=== PATIENT | male | born 1945 | race Hispanic/Latino ===

== ENCOUNTER 2017-12-11 19:28 | Observation (INO) | payer MEDICARE, MEDICAID ==
[~2017-12-11 19:28] MED LIST: ISOVUE-370 76%-LOCM 1 ML ONE
[2017-12-11 19:43] LABS: #Basophils 0.1 thou/uL (0.0-0.2); #Eosinphils 0.5 thou/uL (0.0-0.7); #Monocytes 0.6 thou/uL (0.11-0.59); #Neutrophils 5.4 thou/uL (1.40-6.50); %Basophils 0.9 % (0.0-1.0); %Eosinophils 5.5 % (0.0-10.0); %Lymphocytes 22.8 % (21.0-51.0); %Neutrophils 63.7 % (42.0-75.0); Hemoglobin 15.1 g/dL (14.0-18.0); Mean Corpuscular Hemoglobin 31.7 pg (27.0-31.0); Mean Corpuscular Volume 90.7 fL (78.0-98.0); Mean Platelet Volume 6.5 fL (7.4-10.4); Platelet Count 242 thou/uL (130-400); RBC Distribution Width 11.7 % (11.5-14.5); Red Blood Cell (RBC) Count 4.76 mill/uL (4.70-6.10); White Blood Cell (WBC) Count 8.5 thou/uL (4.8-10.8)
[2017-12-11 19:49] LABS: PTT 27.2 SEC (22.9-36.1); Prothrombin Time 13.3 SEC (12.0-14.7)
[2017-12-11 19:57] LABS: ALT (SGPT) 8 U/L (8-55); AST (SGOT) 15 U/L (5-34); Albumin 4.2 g/dL (3.4-4.8); Alkaline Phosphatase 97 U/L (40-150); Anion Gap 15 mmol/L (10-20); BUN (Urea Nitrogen) 14 mg/dL (8.4-25.7); Bilirubin, Total 0.5 mg/dL (0.2-1.2); Calc. Creatinine Clearance 0 mL/min (70-130); Calcium 9.5 mg/dL (7.8-10.44); Carbon Dioxide 24 mmol/L (23-31); Chloride 102 mmol/L (98-107); Estimated GFR-MDRD 54; Globulin 3.5 g/dL (2.4-3.5); Glucose 113 mg/dL (83-110); Potassium 3.7 mmol/L (3.5-5.1); Protein, Total 7.7 g/dL (5.8-8.1); Sodium 137 mmol/L (136-145)
[2017-12-11 20:00] LABS: CKMB 1.5 ng/mL (0-6.6); Troponin I Less than 0.010 ng/mL (< 0.028)
--- NOTE | 2017-12-11 20:56 | CT ---
NONCONTRAST CT BRAIN: INDICATIONS: Stroke protocol for right-sided weakness and loss of vision. 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 The abnor mal appearance of the left lateral ventricle is stable. There is stable chronic ischemic change. No acute infarct, hemorrhage, or hydrocephalus is present. The skull and extracranial soft tissues castillo ear within normal limits. IMPRESSION: 1. No acute intracranial abnormality. 2. 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 3. Stable chronic ischemic change. 4. The findings were called to Dr. Johnson at 7:44 p.m. on 12/11/2017. CODE CR POS: [facility]
--- NOTE | 2017-12-11 22:22 | CT ---
CTA HEAD AND NECK WITH AND WITHOUT IV CONTRAST: INDICATIONS: History of seizures and right-sided neglect after seizure. TECHNIQUE: Multiple CTA images were obtained of the head and neck with and without contrast and 3D reformatted i mages. FINDINGS: No hemodynamically significant stenosis, occlusion, or aneurysmal formation is present. There are mild vascular calcifications involving the right carotid bulb. The right A1 segment is dom inant with both A2 segments arising from the right A1 segment. The left A1 segment is diminutive. T he migrational abnormality involving the left cerebral hemisphere is stable to the MR comparison date d 10/31/[address] dated 10/30/2016. The chronic ischemic change involving the brain, predomina ntly the left cerebral hemisphere is similar appearing. No area of abnormal enhancement is noted. The soft tissues of the neck appear within normal limits. There is instrumentation involving the cer vical spine posteriorly, extending from C3 through C6. There is posterior decompression from C3 thro ugh C6. There is multilevel spondylosis of the cervical spine. IMPRESSION: No hemodynamically significant stenosis, occlusion, or aneurysmal formation demonstrated. The findings were called to Dr. Johnson at 8:59 p.m. on 12/11/2017 CODE CR POS: [facility]
[2017-12-12] MEDS ORDERED: Acetaminophen 325 MG TAB PO PRN ×2 (01:13→09:11)
[2017-12-12] MEDS ORDERED: Ondansetron ODT 4 MG TAB SL PRN (01:13)
[2017-12-12] MEDS ORDERED: Ondansetron HCl/PF 4 MG/2 ML Vial IVP PRN ×3 (01:13→09:11)
[2017-12-12 01:22] VITALS: BMI 22.1
[2017-12-12] MEDS ORDERED: Lorazepam 2 MG/ML VIAL SLOW IVP PRN (05:08)
[2017-12-12] MEDS ORDERED: Aspirin 81 mg Enteric Coated Tablet PO SCH (09:00)
[2017-12-12] MEDS ORDERED: LEVETIRACETAM 1000 MG PO SCH (09:08)
[2017-12-12] MEDS ORDERED: NAPROXEN 375 MG PO SCH (09:08)
[2017-12-12] MEDS ORDERED: traZODone HCl 50 MG TAB PO PRN (09:11)
[2017-12-12] MEDS ORDERED: Calcium Carbonate 500 MG ChewTAB PO PRN (09:11)
[2017-12-12] MEDS ORDERED: traMADol HCl 50 MG TAB PO PRN (09:11)
[2017-12-12] MEDS ORDERED: Benzonatate 100 MG CAP PO PRN (09:11)
[2017-12-12] MEDS ORDERED: Senokot 8.6 MG TAB PO PRN ×2 (09:11)
[2017-12-12] MEDS ORDERED: Bisacodyl 5 MG TAB PO PRN ×2 (09:11)
[2017-12-12] MEDS ORDERED: Diabetic Tussin 200 MG/10 ML UDCUP PO PRN (09:11)
[2017-12-12] MEDS ORDERED: Loratadine 10 MG TAB PO PRN (09:11)
[2017-12-12] MEDS ORDERED: hydrALAZINE 20 MG/ML VIAL SLOW IVP PRN (09:11)
[2017-12-12] MEDS ORDERED: Mag-Al 1200 mg/1200 mg/30 ML UDCUP PO PRN (09:11)
[2017-12-12] MEDS ORDERED: cloNIDine 0.1 MG TAB PO PRN (09:11)
[2017-12-12] MEDS ORDERED: Sodium Chloride 0.9% 1,000 ML IV SCH (09:15)
[2017-12-12 09:45] LABS: Anion Gap 16 mmol/L (10-20); BUN (Urea Nitrogen) 13 mg/dL (8.4-25.7); Calc. Creatinine Clearance 54 mL/min (70-130); Carbon Dioxide 22 mmol/L (23-31); Chloride 102 mmol/L (98-107); Estimated GFR-MDRD 56; Glucose 109 mg/dL (83-110); Potassium 3.4 mmol/L (3.5-5.1); Sodium 137 mmol/L (136-145)
[2017-12-12] MEDS ORDERED: levETIRAcetam 500 MG TAB PO SCH ×2 (10:00→21:00)
[2017-12-12 10:30] LABS: Bilirubin Negative (Negative); Blood, Urine Negative (Negative); Clarity CLEAR (Clear); Glucose, Urine (Dipstick) 100 mg/dL (Negative); Leukocyte Negative (Negative); Nitrite Negative (Negative); Protein, Urine (Dipstick) Negative (Neg-Trace); Specific Gravity, Urine 1.015 (1.002-1.036)
[2017-12-12 10:33] LABS: Bacteria/HPF None Seen HPF (None Seen); Hyaline Casts/LPF 0-3 HYALINE CAST LPF (0-3 Hyaline); RBC/HPF 0-3 HPF (0-3); Squamous Epithelial None Seen HPF (0-3); WBC/HPF None Seen HPF (0-3)
[2017-12-12] MEDS ORDERED: Potassium Chloride 20 MEQ TAB PO SCH (12:00)
--- NOTE | 2017-12-12 12:18 | MRI ---
BRAIN MRI WITHOUT CONTRAST: Date: 12/12/17 HISTORY: Possible stroke. Possible seizure. Right-sided neglect. COMPARISON: None. TECHNIQUE: Brain MRI is performed without intravenous Gadolinium administration. Multisequential, multiplanar im aging is performed. FINDINGS: No hemorrhage on the coronal gradient echo sequence. Symmetric signal intensity of the hippocampi. No MR evidence of mesial temporal sclerosis. Stable changes involving the left cerebrum. T2 and FLAIR white matter hyperintensities due to chronic small vessel ischemic changes are noted. Stable appearance of the ventricular system. Calvarium has a normal marrow signal intensity. Midline brain parenchymal structures are unremarkable. Central arterial flow-voids are maintained. Absent restricted diffusion. Previously noted restricted diffusion in the left centrum semiovale is not evident. Mild mucosal disease of the paranasal sinuses. Adequate mastoid air cell aeration. IMPRESSION: 1. Absent restricted diffusion. No acute infarct. 2. Stable appearance of the left cerebrum. Chronic small vessel ischemic changes of white matter symone ntified. 3. Interval resolution of previously noted tiny white matter infarct involving the left centrum semi ovale. POS: [facility]
--- NOTE | 2017-12-12 12:27 | HP ---
PRIMARY CARE PHYSICIAN: Dr. Borden CHIEF COMPLAINT: Seizures. HISTORY OF PRESENT ILLNESS: Mr. Leo is a very pleasant 72-year-old male with past medical history of CVA and seizure disorder who presented to the ER with the above-mentioned complaint. History is m ainly obtained by the patient himself who is unable to provide much of the history as he was not awar e at the time of his symptoms. The family members are not in the room at this time. Most of the his tory is obtained by review of the electronic medical records. Mr. Leo reports that he has history of seizure disorder and currently takes Keppra and is stable on that, managed by the primary care physician. He was first diagnosed with seizures about 5-6 years a go and also diagnosed with a CVA 5-6 years ago. He reports that yesterday he drove to see his a t her work and she decided to drive him back home because something was not right with him. The sruthi ent remembers having problems with his right eye. He has noticed that all of the day yesterday his r ight vision was blurry. He does have a cataract on the right side and has chronic problems with poor eyesight on that side, but yesterday he was seeing spots and "various things in front of his right e ye". He was told that he was acting confused and he had a seizure witnessed by his in their dri veway, so she called 911 from her driveway. EMS brought the patient here and reported that he had a seizure roughly lasting 1 minute or so. He denies having any tonic-clonic jerking as far as he could remember. He reports that he was told that he just blanked out and his last seizure a few years ago , presented the same way. He had associated right arm weakness when brought into the emergency room. Upon presentation to the emergency room, he was tachycardic with a heart rate of 113, blood pressure 179/93, otherwise stable. His examination per the ER physician was consistent with the right leg wea kness and right-sided visual deficit. In the emergency room, his EKG showed sinus tachycardia. He underwent CT scan of the brain which was unremarkable. Then, a CT angio was done which was also unremarkable. board certified family physician Neurology, Dr. 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 PAST MEDICAL HISTORY: 1. Seizure disorder. 2. History of cerebrovascular accident. 3. Rheumatoid arthritis. PAST SURGICAL HISTORY: 1. Neck surgery. 2. Appendectomy. 3. Knee surgery. SOCIAL HISTORY: He is and lives with his . No history of drug, tobacco or alcohol abuse . CODE STATUS: FULL CODE. FAMILY HISTORY: Positive for heart disease. ALLERGIES: No known medication allergies. MEDICATIONS: Aspirin 81 mg daily, naproxen 375 mg p.o. b.i.d., Keppra 1000 mg p.o. b.i.d. REVIEW OF SYSTEMS: A 12-point review of systems is done and is negative except for those mentioned i n the history and physical. LABORATORY DATA: CBC is unremarkable. PT, PTT, INR are normal. Serum chemistries show creatinine o f 1.31 upon presentation, which is improved to a creatinine of 1.26. Cardiac enzymes and creatinine kinase is normal. Prolactin was not checked. Urinalysis shows glucosuria. CT scan of the brain by my review has no evidence to suggest any acute ischemia or hemorrhage. CT an giogram of the head and neck done in the ER is negative for any stenosis or thrombus. Twelve lead EK G by my review shows normal sinus rhythm without any acute T or ST wave changes. PHYSICAL EXAMINATION: VITAL SIGNS: Temperature 97.5, pulse of 75, respirations 18, saturating 98% on room air, blood press ure 133/83. GENERAL: No acute distress, awake, alert, oriented x3. HEENT: Mucous membranes are slightly dry. No oropharyngeal exudate or erythema. Head is normocepha lic, atraumatic. Pupils equal, reactive to light. Extraocular movement intact. He does have diffic ulty with his eyesight on the right side when he covers his left side. He attributes this to his his tory of cataracts. NECK: Supple without any lymphadenopathy, JVD or bruit. CHEST: Clear to auscultation without any wheezing, rales or rhonchi. Rhythm is regular without any murmur, rubs or gallops. ABDOMEN: Soft, nontender, nondistended, positive bowel sounds. EXTREMITIES: Free of any cyanosis, clubbing, or edema. NEUROLOGIC: Nonfocal except for the right vision changes as above. SKIN: Free of any rashes or bruises. It feels warm and dry to touch. PSYCHIATRIC: Normal affect. IMPRESSION AND PLAN: 1. Seizures. I am not sure what kind of seizures he had, but it seems like he did have partial com plex seizures. At this time, he is symptom free. We will continue his Keppra by mouth 1000 mg p.o. b.i.d. and consult Neurology for further evaluation. The patient may or may not need an EEG. He stefan l be referred to outpatient Neurology as well for long-term follow up for his history of seizures. Savanna mojica will obtain an MRI of the brain given his history of CVA in the past. He did have an extensive wor kup done for a stroke in 10/2016 including a carotid Doppler ultrasound, and transthoracic echocardio gram. Both of these tests at that time were unremarkable except for some evidence of diastolic dysfu nction in his echocardiogram. At this time, we will perform the MRI. Continue his medication and aw ait Neurology recommendations. If he remains asymptomatic, he can be discharged home later today. 2. History of cerebrovascular accident. The patient is on aspirin low dose, but no statins for some reason. We will check a lipid panel and start him on low dose statin as well. 3. Rheumatoid arthritis. The patient takes high doses of naproxen. I have requested him to discuss this with his primary care physician as he is also on low dose aspirin and the chances of gastritis or peptic ulcer disease is high. He will be started on Protonix and will be discharged on same. He will further discuss chronic use of NSAIDs with his primary care physician. 4. Code status: FULL CODE. Discussed with the patient. 5. Acute renal insufficiency has resolved for now. He will be continued on IV fluids for a little b it longer as he has received IV contrast for the CT scan yesterday. His renal function has improved. 6. Deep venous thrombosis and gastrointestinal prophylaxis. 7. Add p.r.n. medications. DISPOSITION: Mr. Leo is currently being admitted to the hospital for possible breakthrough seizure s. We will obtain an MRI, Neurology consultants and send Keppra levels examination. Estimated lengt h of stay at this time is less than 2 midnights. Further management will depend upon his clinical co jaxon.
[2017-12-12 13:33] LABS: Cardiac Risk 2.7 (Less than 4.5)
[2017-12-12 15:46] VITALS: BP 141/75; TEMP 98.4
[2017-12-12] MEDS ORDERED: Simvastatin 20 MG TAB PO SCH (21:00)
[2017-12-12] MEDS ORDERED: Naproxen 500 MG TAB PO SCH (21:00)
--- NOTE | 2017-12-12 23:32 | CON ---
DATE OF CONSULTATION: 12/12/2017 CONSULTING PHYSICIAN: Hospitalist Service. IMPRESSION: 1. Recurrent seizure despite compliance. 2. History of prior cerebral infarct. PLAN: 1. Increase Keppra to 1500 mg twice a day. 2. Office followup. HISTORY OF PRESENT ILLNESS: Mr. Leo is a 72-year-old gentleman who was admitted after having a sei zure in his driveway. He reports that his seizures began a few years back when he was living in [facility]. He was started on Keppra at that time and then moved to [place]. He had a recurrent seizure a fter leaving here and his dose was increased to 1000 mg twice a day. He had a blood level done after admission which showed a level of 38. He denies that there were any new focal neurologic symptoms s miguel a the seizure. PAST MEDICAL HISTORY: Arthritis, seizure disorder, stroke. MEDICATIONS: Keppra and naproxen. ALLERGIES: None reported. SOCIAL HISTORY: Unremarkable. FAMILY HISTORY: Noncontributory. REVIEW OF SYSTEMS: No complaint of headache, nausea, vomiting, chest pain, shortness of breath. PHYSICAL EXAMINATION: GENERAL: He is a thin elderly man sitting up in bed in no distress. VITAL SIGNS: Stable. Pulse rate of 75 and normal sinus rhythm. HEENT: Unremarkable other than poor dentition. NECK: Supple. EXTREMITIES: No cyanosis, clubbing or edema. NEUROLOGIC: He is alert and appropriate. His speech is fluent and clear. His exam is nonfocal. No abnormal movements were seen. IMAGING: MRI images were reviewed which showed some asymmetry to the lateral ventricles being slight ly dilated on the left with moderately extensive chronic small vessel ischemic changes in the periven tricular regions. His CTA of the major vessels were all clear. LABORATORY STUDIES: Only remarkable for mild hypokalemia. SUMMARY: Elderly man with a seizure disorder who had a breakthrough seizure despite compliance with his Keppra. We will increase the dose to the maximum recommended and I will follow up with him in [facility] office.
[2017-12-13] MEDS ORDERED: Enoxaparin Sodium 40 MG/0.4 ML SYRINGE SC SCH (09:00)
[2017-12-13] MEDS ORDERED: Pantoprazole 40 MG GRANULES PACKET PO SCH (09:00)
--- NOTE | 2017-12-13 13:04 | DIS ---
DATE OF ADMISSION: 12/11/2017 DATE OF DISCHARGE: 12/12/2017 DISCHARGE DISPOSITION: Home. PRIMARY CARE PHYSICIAN: Dr. Brady Borden. INHOUSE CONSULTATIONS: Neurology, Dr. Robert Rivera. PROCEDURES DONE IN THE HOSPITAL: MRI of the brain, which is negative for any acute intracranial wadsworth ges. New infarction. Chronic small vessel ischemic changes seen, and interval resolution of the pre viously noted tiny white matter infarction involving the left centrum semiovale. HISTORY OF PRESENTING ILLNESS AND SHORT HOSPITAL COURSE: Please see admission H and P for full detai ls for admission of Mr. Leo. He was admitted a few hours ago by myself for seizures. He has histo ry of seizures and has been stable on Keppra as an outpatient. He has not seen a neurologist in the recent past. Dr. Rivera was consulted; an MRI was done which was unremarkable. Dr. Rivera recomme nded increasing his Keppra from 1000 b.i.d. 1500 mg b.i.d. Otherwise, his hospital course was unrema rkable and he did not have any signs and symptoms or any seizures while he was here. His neurologica l examination remained stable and he was discharged. Please see his H&P for further detail. DISCHARGE MEDICATIONS: Keppra 1500 mg p.o. b.i.d. Restart aspirin 81 mg daily, naproxen 375 mg p.o. b.i.d., Zocor 20 mg daily. New medication: Protonix 40 mg daily, simvastatin 20 mg daily was added as he has history of CVA in the past.
== END 2017-12-12 18:35 | disposition home or self-care (01) ==
LOC: ERS 19:28 → 2SW 23:12
PROVIDERS: ADMIT Hospitalist; ATTEND Hospitalist
DX: G40.909 Epilepsy, unspecified, not intractable, without status epilepticus (principal); M06.9 Rheumatoid arthritis, unspecified; N17.9 Acute kidney failure, unspecified; Z86.73 Personal history of transient ischemic attack (TIA), and cerebral infarction without residual deficits; Z79.82 Long term (current) use of aspirin; Z79.899 Other long term (current) drug therapy
CPT/HCPCS: 70450; 70496; 70498; 70551; 80048; 80053; 80061; 80177; 81001; 82550; 82553; 82962; 84484; 85025; 85610; 85730; 93005; 94760; 96365; 96375; 97139; 99285; G0378 ×2; G8978; G8979; G8980; 36415; 36416; J1953

== ENCOUNTER 2018-04-17 11:31 | Emergency (ER) | payer MEDICARE, OTHER ==
[2018-04-17] MEDS ORDERED: Lorazepam 2 MG/ML VIAL ONE ×2 (11:40→15:35)
[2018-04-17] MEDS ORDERED: levETIRAcetam 500 MG TAB PO SCH (13:30)
[2018-04-17] MEDS ORDERED: Diazepam 5 MG TAB ONE (14:46)
[2018-04-17 16:00] LABS: #Eosinphils 0.3 thou/uL (0.0-0.7); #Lymphocytes 1.4 thou/uL (1.20-3.40); #Monocytes 0.4 thou/uL (0.11-0.59); %Basophils 0.6 % (0.0-1.0); %Eosinophils 4.9 % (0.0-10.0); %Lymphocytes 22.7 % (21.0-51.0); %Monocytes 7.1 % (0.0-10.0); %Neutrophils 64.8 % (42.0-75.0); Hemoglobin 15.7 g/dL (14.0-18.0); Mean Corpuscular Hemoglobin 29.5 pg (27.0-31.0); Mean Corpuscular Volume 92.3 fL (78.0-98.0); Mean Platelet Volume 7.7 fL (7.4-10.4); Platelet Count 267 thou/uL (130-400); RBC Distribution Width 12.1 % (11.5-14.5); Red Blood Cell (RBC) Count 5.33 mill/uL (4.70-6.10); White Blood Cell (WBC) Count 6.2 thou/uL (4.8-10.8)
[2018-04-17 16:08] LABS: ALT (SGPT) 10 U/L (8-55); AST (SGOT) 16 U/L (5-34); Albumin 4.2 g/dL (3.4-4.8); Alkaline Phosphatase 103 U/L (40-150); Anion Gap 14 mmol/L (10-20); BUN (Urea Nitrogen) 18 mg/dL (8.4-25.7); Bilirubin, Total 0.6 mg/dL (0.2-1.2); CK (CPK) 90 U/L (30-200); Calc. Creatinine Clearance 0 mL/min (70-130); Calcium 9.5 mg/dL (7.8-10.44); Carbon Dioxide 26 mmol/L (23-31); Chloride 100 mmol/L (98-107); Estimated GFR-MDRD 54; Globulin 3.3 g/dL (2.4-3.5); Glucose 145 mg/dL (83-110); Potassium 4.1 mmol/L (3.5-5.1); Protein, Total 7.5 g/dL (5.8-8.1); Sodium 136 mmol/L (136-145)
--- NOTE | 2018-04-17 16:50 | CT ---
CT OF THE BRAIN WITHOUT CONTRAST: Date: 04/17/18 COMPARISON: 12/11/17. HISTORY: Seizure. Right-sided aura. TECHNIQUE: Multiple contiguous axial images were obtained in a CT of the brain without contrast. FINDINGS: There are scattered hypodensities in the subcortical and periventricular white matter, likely seconda ry to small vessel ischemic disease. No large confluent infarction seen. There is no evidence of hydr ocephalus, intracranial hemorrhage, or extra-axial fluid collection. The calvarium and overlying soft tissues are unremarkable. The visualized paranasal sinuses and masto id air cells are well aerated. IMPRESSION: No evidence of acute intracranial abnormality. POS: [facility]
[2018-04-17 17:35] LABS: Amphetamine Not Detected (NotDetected); Barbiturates Screen Not Detected (NotDetected); Benzodiazepine Screen Detected (NotDetected); Cocaine Metabolite Screen Not Detected (NotDetected); Medtox Control Line Valid? VALID (VALID); Medtox Reader # READER 4; Methadone Not Detected (NotDetected); Methamphetamine Not Detected (NotDetected); Opiate Screen Not Detected (NotDetected); Oxycodone Screen Not Detected (NotDetected); Phencyclidine (PCP) Not Detected (NotDetected); THC/Cannabinoid Screen Not Detected (NotDetected); Tricyclic Screen Not Detected (NotDetected)
== END 2018-04-17 14:06 | disposition home or self-care (01) ==
LOC: ERS 11:31
DX: G40.909 Epilepsy, unspecified, not intractable, without status epilepticus (principal); Z79.899 Other long term (current) drug therapy
CPT/HCPCS: 36415; 70450; 80053; 80177; 80306; 82550; 84146; 85025; 96374; 96376; J2060

== ENCOUNTER 2018-05-23 17:58 | Emergency (ER) | payer MEDICARE, OTHER ==
[2018-05-23] MEDS ORDERED: Acetaminophen 500 MG TAB ONE (19:44)
--- NOTE | 2018-05-23 19:56 | CT ---
CT BRAIN NONCONTRAST: DATE: 05/23/2018 TIME: 6:57 p.m. HISTORY: A 72-year-old male with severe headache. History of seizures. COMPARISON: 04/17/2018 FINDINGS: Nodularity throughout the lateral surface of the left lateral ventricle represents heterotopic amador m atter. Chronic mild to moderate ventriculomegaly involving the lateral ventricles bilaterally, left greater than right. Chronic ischemic white matter changes. Additional probable periventricular and deep white matter old lacunar infarctions in the oneil radiata and centrum semiovale. Chronic midli ne shift of the septum pellucidum to the right, not due to acute mass effect. No acute intracranial hemorrhage, mass effect, or extraaxial fluid collection. Tha cisterna magna. Calvarium is intact. Bilateral tympanomastoid cavities, and the paranasal sinuses superior to the mid maxillary sinuses, demonstrate no gross opacification. No interval change overall. IMPRESSION: 1. No acute intracranial findings. 2. 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 This would explain t he patient's history of seizures. 3. Chronic ischemic white matter changes and probable multiple small left deep cerebral white matter old lacunar infarctions. KOURTNEY Shepard POS: [facility]
[2018-05-23 20:43] LABS: #Eosinphils 0.1 thou/uL (0.0-0.7); #Monocytes 0.5 thou/uL (0.11-0.59); #Neutrophils 9.8 thou/uL (1.40-6.50); %Basophils 0.4 % (0.0-1.0); %Eosinophils 0.8 % (0.0-10.0); %Lymphocytes 8.9 % (21.0-51.0); %Monocytes 4.1 % (0.0-10.0); %Neutrophils 85.8 % (42.0-75.0); Hemoglobin 15.1 g/dL (14.0-18.0); Mean Corpuscular HGB CONC 33.6 g/dL (32.0-36.0); Mean Corpuscular Hemoglobin 29.9 pg (27.0-31.0); Mean Corpuscular Volume 88.9 fL (78.0-98.0); Mean Platelet Volume 7.2 fL (7.4-10.4); Platelet Count 258 thou/uL (130-400); RBC Distribution Width 11.6 % (11.5-14.5); Red Blood Cell (RBC) Count 5.06 mill/uL (4.70-6.10); White Blood Cell (WBC) Count 11.4 thou/uL (4.8-10.8)
[2018-05-23 21:01] LABS: Calcium 9.8 mg/dL (7.8-10.44); Chloride 101 mmol/L (98-107); Potassium 3.3 mmol/L (3.5-5.1); Sodium 137 mmol/L (136-145)
[2018-05-23 21:02] LABS: Albumin 4.5 g/dL (3.4-4.8)
[2018-05-23 21:04] LABS: Bilirubin, Total 0.8 mg/dL (0.2-1.2); Glucose 123 mg/dL (83-110)
[2018-05-23 21:05] LABS: Globulin 3.7 g/dL (2.4-3.5); Protein, Total 8.2 g/dL (5.8-8.1)
[2018-05-23 21:06] LABS: Carbon Dioxide 22 mmol/L (23-31)
[2018-05-23 21:07] LABS: AST (SGOT) 17 U/L (5-34); Alkaline Phosphatase 102 U/L (40-150)
[2018-05-23 21:08] LABS: Calc. Creatinine Clearance 0 mL/min (70-130); Estimated GFR-MDRD 63
[2018-05-23 21:09] LABS: BUN (Urea Nitrogen) 15 mg/dL (8.4-25.7)
[2018-05-23 21:10] LABS: ALT (SGPT) 10 U/L (8-55)
[2018-05-23 21:18] LABS: Anion Gap 15 mmol/L (10-20)
[2018-05-23] MEDS ORDERED: Metoclopramide HCl 10 MG TAB ONE (22:35)
[2018-05-23] MEDS ORDERED: levETIRAcetam 500 MG TAB PO SCH (22:45)
== END 2018-05-23 22:59 | disposition home or self-care (01) ==
LOC: ERS 17:58
DX: R51 Headache (principal); R56.9 Unspecified convulsions; M19.90 Unspecified osteoarthritis, unspecified site; Z79.899 Other long term (current) drug therapy
CPT/HCPCS: 36415; 70450; 80053; 85025

== ENCOUNTER 2018-07-13 22:19 | Emergency (ER) | payer MEDICARE, MEDICAID ==
[2018-07-13 23:06] LABS: #Basophils 0.1 thou/uL (0.0-0.2); #Eosinphils 0.5 thou/uL (0.0-0.7); #Lymphocytes 1.6 thou/uL (1.20-3.40); #Monocytes 0.5 thou/uL (0.11-0.59); #Neutrophils 6.7 thou/uL (1.40-6.50); %Basophils 0.6 % (0.0-1.0); %Eosinophils 4.9 % (0.0-10.0); %Lymphocytes 16.8 % (21.0-51.0); %Monocytes 5.9 % (0.0-10.0); %Neutrophils 71.9 % (42.0-75.0); Hemoglobin 14.4 g/dL (14.0-18.0); Mean Corpuscular HGB CONC 32.3 g/dL (32.0-36.0); Mean Corpuscular Hemoglobin 29.5 pg (27.0-31.0); Mean Corpuscular Volume 91.5 fL (78.0-98.0); Mean Platelet Volume 6.9 fL (7.4-10.4); Platelet Count 239 thou/uL (130-400); RBC Distribution Width 11.6 % (11.5-14.5); Red Blood Cell (RBC) Count 4.88 mill/uL (4.70-6.10); White Blood Cell (WBC) Count 9.3 thou/uL (4.8-10.8)
[2018-07-13 23:33] LABS: ALT (SGPT) 9 U/L (8-55); AST (SGOT) 16 U/L (5-34); Albumin 3.9 g/dL (3.4-4.8); Alkaline Phosphatase 100 U/L (40-150); Anion Gap 11 mmol/L (10-20); BUN (Urea Nitrogen) 15 mg/dL (8.4-25.7); Bilirubin, Total 0.6 mg/dL (0.2-1.2); Calc. Creatinine Clearance 0 mL/min (70-130); Calcium 9.2 mg/dL (7.8-10.44); Carbon Dioxide 26 mmol/L (23-31); Chloride 102 mmol/L (98-107); Estimated GFR-MDRD 55; Globulin 3.3 g/dL (2.4-3.5); Glucose 120 mg/dL (83-110); Potassium 3.4 mmol/L (3.5-5.1); Protein, Total 7.2 g/dL (5.8-8.1); Sodium 136 mmol/L (136-145)
--- NOTE | 2018-07-13 23:42 | CT ---
CT OF THE BRAIN WITHOUT CONTRAST 07/13/18 INDICATION: History of seizures. COMPARISON: Prior CT of the brain dated 05/23/18. FINDINGS: Chronic small vessel white matter ischemic changes are stable appearing. The left sided migration ano marek consistent with left periventricular amador matter heterotopia is stable appearing. No definite ac javier infarct, hemorrhage or hydrocephalus is present. Skull and extracranial soft tissues appear withi n normal limits. IMPRESSION: 1. No acute intracranial abnormality. 2. Stable chronic ischemic change and left sided migrational anomaly. POS: [facility]
[2018-07-13 23:55] LABS: Bilirubin Negative (Negative); Blood, Urine Negative (Negative); Clarity CLEAR (Clear); Glucose, Urine (Dipstick) Negative (Negative); Leukocyte Negative (Negative); Nitrite Negative (Negative); Protein, Urine (Dipstick) Negative (Neg-Trace); Specific Gravity, Urine 1.016 (1.002-1.036)
[2018-07-14] MEDS ORDERED: Aspirin Chewable 81 MG TAB ONE (00:39)
--- NOTE | 2018-07-14 07:32 | CT ---
CTA OF THE HEAD UTILIZING IV CONTRAST AND 3D REFORMATTED IMAGING: COMPARISON: Noncontrast CT of the brain dated 07/13/2018 and CTA of the head and neck dated 12/11/2017. FINDINGS: No hemodynamically significant stenosis, occlusion, or aneurysmal formation is demonstrate. There ar e mild vascular calcifications seen involving the cavernous ICAs bilaterally. The right A1 is domina nt with both anterior cerebral arteries arising from the right HUMPHREY. The migrational abnormality invo lving the left cerebral hemisphere is similar-appearing. Chronic ischemic change involving the left cerebral hemisphere is similar-appearing. IMPRESSION: No hemodynamically significant stenosis, occlusion, or aneurysmal formation demonstrated. POS: [facility]
== END 2018-07-14 01:19 | disposition home or self-care (01) ==
LOC: ERS 22:19
DX: G83.84 Todd's paralysis (postepileptic) (principal); Z79.899 Other long term (current) drug therapy
CPT/HCPCS: 36415; 70450; 70496; 80053; 80177; 81003; 84146; 84484; 85025; 93005; Q9966

== ENCOUNTER 2018-08-31 13:01 | Observation (INO) | payer MEDICARE, MEDICAID ==
[2018-08-31 13:22] LABS: #Eosinphils 0.3 thou/uL (0.0-0.7); #Lymphocytes 1.3 thou/uL (1.20-3.40); #Monocytes 0.5 thou/uL (0.11-0.59); #Neutrophils 5.5 thou/uL (1.40-6.50); %Basophils 0.5 % (0.0-1.0); %Eosinophils 3.8 % (0.0-10.0); %Lymphocytes 17.1 % (21.0-51.0); %Neutrophils 72.7 % (42.0-75.0); Hemoglobin 15.3 g/dL (14.0-18.0); Mean Corpuscular HGB CONC 31.3 g/dL (32.0-36.0); Mean Corpuscular Hemoglobin 27.9 pg (27.0-31.0); Mean Corpuscular Volume 89.2 fL (78.0-98.0); Mean Platelet Volume 7.3 fL (7.4-10.4); Platelet Count 259 thou/uL (130-400); RBC Distribution Width 12.2 % (11.5-14.5); White Blood Cell (WBC) Count 7.5 thou/uL (4.8-10.8)
[2018-08-31 13:29] LABS: PTT 27.3 SEC (22.9-36.1)
--- NOTE | 2018-08-31 13:31 | CT ---
Exam: HEAD CT WITHOUT CONTRAST: HISTORY: Level 2 stroke. Left-sided weakness. Seizure this morning. COMPARISON: 07/13/2018 FINDINGS: Hemorrhage: No intraparenchymal hemorrhage or extra-axial hematoma. Brain parenchyma: Cortical amador-white matter differentiation is preserved. No mass effect or midline shift. Basilar cisterns are patent White matter hypodensities due to chronic small vessel ischemic change. Ventricular system: Ventricles and sulci are patent and symmetric. Calvarium: Intact. Stable configuration of the left ventricle. Sinuses and mastoid air cells: Adequate aeration. IMPRESSION: No acute intracranial process. Results study discussed with Dr. Bean 08/31/2018 at 1:31 PM Code CR Transcribed Date/Time: 08/31/2018 1:38 PM
[2018-08-31 13:38] LABS: ALT (SGPT) 11 U/L (8-55); AST (SGOT) 16 U/L (5-34); Albumin 4.2 g/dL (3.4-4.8); Alkaline Phosphatase 105 U/L (40-150); Anion Gap 12 mmol/L (10-20); BUN (Urea Nitrogen) 15 mg/dL (8.4-25.7); Bilirubin, Total 0.7 mg/dL (0.2-1.2); CK (CPK) 71 U/L (30-200); Calc. Creatinine Clearance 0 mL/min (70-130); Calcium 9.6 mg/dL (7.8-10.44); Carbon Dioxide 25 mmol/L (23-31); Chloride 100 mmol/L (98-107); Estimated GFR-MDRD 57; Globulin 3.7 g/dL (2.4-3.5); Glucose 131 mg/dL (83-110); Potassium 3.6 mmol/L (3.5-5.1); Protein, Total 7.9 g/dL (5.8-8.1); Sodium 133 mmol/L (136-145)
--- NOTE | 2018-08-31 14:11 | RAD ---
Exam: Chest one view HISTORY:Right-sided weakness. Right-sided blindness. Comparison: None FINDINGS: Cardiac silhouette: Normal Pulmonary vessels: Normal Costophrenic angles: Clear LUNGS: No masses or consolidation. Pneumothorax: None Osseous abnormalities: None IMPRESSION: No acute cardiopulmonary process.
--- NOTE | 2018-08-31 14:26 | CT ---
CTA OF THE HEAD WITH AND WITHOUT IV CONTRAST AND 3D REFORMATTED IMAGING CTA OF THE NECK WITH IV CONTRAST AND 3D REFORMATTED IMAGING 3D VOLUME RENDERING: DATE: 08/31/2018 1:12 PM HISTORY: Left-sided weakness COMPARISON: None FINDINGS: Scattered mild atherotic plaques are present, regionally. Right: CCA:No significant stenosis. ICA:Prominent calcification at the right carotid terminus MCA:No significant stenosis. HUMPHREY:No significant stenosis. MOTOR BUS DRIVER:No significant stenosis. LEFT: CCA:Mild to moderate focal stenosis at the distal left CCA ICA:Prominent calcification at the left carotid terminus. MCA:Mild atherosclerotic irregularity. HUMPHREY:Diminutive left A1 segment. This could be congenital. MOTOR BUS DRIVER:No significant stenosis. Vertebrobasilar System: Left Vertebral:No significant stenosis. Right Vertebral:No significant stenosis. Basilar:No significant stenosis. IMPRESSION: 1. No hemodynamically significant/severe stenosis, occlusion or aneurysmal dilation. 2. Scattered atherotic irregularity of the regional arterial system. Transcribed Date/Time: 08/31/2018 2:37 PM
[2018-08-31] MEDS ORDERED: levETIRAcetam 500 MG/100 ML PREMIX BAG ONE (15:30)
[2018-08-31] MEDS ORDERED: Aspirin Chewable 81 MG TAB ONE (15:44)
[2018-08-31] MEDS ORDERED: Senokot S 8.6-50 MG TAB PO PRN (16:25)
[2018-08-31] MEDS ORDERED: HYDROcodone/Acetaminophen 5/325 mg Tablet PO PRN (16:25)
[2018-08-31] MEDS ORDERED: Acetaminophen 325 MG TAB PO PRN (16:25)
[2018-08-31] MEDS: Sodium Chloride 0.9% 1,000 ML IV SCH (17:55)
[2018-08-31 19:39] VITALS: BMI 21.6
[2018-08-31 20:34] LABS: Cardiac Risk 2.7 (Less than 4.5)
[2018-08-31] MEDS: Famotidine 20 MG TAB PO SCH (20:39)
[2018-08-31] MEDS: Naproxen 500 MG TAB PO SCH (20:40)
[2018-08-31] MEDS: levETIRAcetam 500 MG TAB PO SCH (20:40)
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
[2018-09-01 05:21] LABS: #Eosinphils 0.5 thou/uL (0.0-0.7); #Lymphocytes 1.9 thou/uL (1.20-3.40); #Monocytes 0.8 thou/uL (0.11-0.59); #Neutrophils 4.9 thou/uL (1.40-6.50); %Basophils 0.3 % (0.0-1.0); %Eosinophils 6.6 % (0.0-10.0); %Lymphocytes 23.7 % (21.0-51.0); %Monocytes 9.4 % (0.0-10.0); Hemoglobin 13.7 g/dL (14.0-18.0); Mean Corpuscular HGB CONC 32.6 g/dL (32.0-36.0); Mean Corpuscular Hemoglobin 29.7 pg (27.0-31.0); Mean Corpuscular Volume 91.3 fL (78.0-98.0); Platelet Count 225 thou/uL (130-400); RBC Distribution Width 12.2 % (11.5-14.5); White Blood Cell (WBC) Count 8.2 thou/uL (4.8-10.8)
[2018-09-01 05:47] LABS: ALT (SGPT) 7 U/L (8-55); AST (SGOT) 13 U/L (5-34); Albumin 3.6 g/dL (3.4-4.8); Alkaline Phosphatase 80 U/L (40-150); Anion Gap 9 mmol/L (10-20); BUN (Urea Nitrogen) 11 mg/dL (8.4-25.7); Bilirubin, Total 0.7 mg/dL (0.2-1.2); Calc. Creatinine Clearance 56 mL/min (70-130); Calcium 8.9 mg/dL (7.8-10.44); Carbon Dioxide 25 mmol/L (23-31); Chloride 107 mmol/L (98-107); Estimated GFR-MDRD 62; Glucose 95 mg/dL (83-110); Potassium 3.4 mmol/L (3.5-5.1); Protein, Total 6.6 g/dL (5.8-8.1); Sodium 138 mmol/L (136-145)
[2018-09-01] MEDS: Sodium Chloride 0.9% 1,000 ML IV SCH (06:06)
[2018-09-01] MEDS: levETIRAcetam 500 MG TAB PO SCH ×2 (08:10→14:24)
[2018-09-01] MEDS: Famotidine 20 MG TAB PO SCH (08:10)
[2018-09-01] MEDS: Naproxen 500 MG TAB PO SCH (08:10)
[2018-09-01] MEDS ORDERED: Enoxaparin Sodium 40 MG/0.4 ML SYRINGE SC SCH (09:00)
[2018-09-01] MEDS ORDERED: Aspirin 81 mg Enteric Coated Tablet PO SCH (09:00)
--- NOTE | 2018-09-01 14:31 | MRI ---
MRI BRAIN PERFORMED WITHOUT CONTRAST ENHANCEMENT: Date: 09/01/18 COMPARISON: 12/12/17 study. HISTORY: History of seizures for several years. Recent seizure. FINDINGS: There is generalized ventricular and sulcal prominence. Deformity to the left lateral ventricle, spec ifically the region of the left frontal horn, is again noted. White matter changes, which asymmetrica lly involve the left cerebral white matter, are all stable as compared to the prior exam. There is no hemorrhage or mass effect. On the diffusion-weighted sequence, there are no signs that would suggest infarct. The pituitary is normal in size. The mastoid air cells and visualized sinuses are clear. IMPRESSION: No acute intracranial abnormality. Stable findings as compared to the previous study. POS: RUBY
[2018-09-01 15:57] VITALS: BP 136/74; TEMP 98.1
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
--- NOTE | 2018-09-02 01:57 | DIS ---
DATE OF ADMISSION: 08/31/2018 DATE OF DISCHARGE: 09/01/2018 DISCHARGE DIAGNOSES: 1. Recurrent seizures with Robert's paralysis. 2. Hyponatremia, mild, resolved. CONSULTATIONS: None. PERTINENT LAB AND X-RAY FINDINGS: Sodium ranged between 133 to 138. Total cholesterol 134, triglycerides 35, HDL 49, LDL 78. TSH 1.63. CBC within normal limits. Keppra level 25.1 on 08/31/2018. Portable chest x-ray dated 08/31/2018 showed no acute cardiopulmonary process. CT of the brain without contrast dated 08/31/2018 showed no acute intracranial process. CT angiogram of [place] dated 08/31/2018 showed no hemodynamically significant stenosis, occlusion, or aneurysmal dilation. MRI of the brain dated 09/01/2018 showed no acute intracranial process. 2D transthoracic echocardiogram dated 09/01/2018 showed ejection fraction of 55% to 60%. Mild diastolic dysfunction. Mild right atrial enlargement. No intracardiac thrombus. HOSPITAL COURSE: The patient was observed on the stroke unit after initially presenting with right-sided weakness and suspected unwitnessed seizure. The patient with a known history of seizure disorder, on chronic Keppra therapy, continued on Keppra 1000 mg p.o. t.i.d. No recurrent seizure activity noted during the hospital observation. The patient underwent extensive evaluation including multiple neuro imaging studies showing negative results. The patient likely with Robert's paralysis in conjunction with breakthrough seizure. Screening metabolic survey was essentially unremarkable and telemetry monitoring showed sinus mechanism without acute arrhythmia or dysrhythmia. Overall, the patient remained clinically stable throughout the hospital course. I have examined the patient at the time of discharge and discussed followup instructions. The patient verbalized understanding and agreement ready for discharge on 09/01/2018. DISCHARGE MEDICATIONS: 1. Keppra 1000 mg p.o. t.i.d. 2. Enteric-coated aspirin 81 mg p.o. daily. 3. Naprosyn 325 mg p.o. b.i.d. p.r.n. FOLLOWUP: The patient to follow up with his primary care provider, Dr. Brady Borden, within 7 days of discharge. The patient may also follow up with Neurology Service and to call their office for appointment time and date. CONDITION ON DISCHARGE: Stable. ACTIVITY: Ad-tariq. DIET: Regular. CODE STATUS: Full. DISPOSITION: To home, 09/01/2018. Job ID: [id number]
--- NOTE | 2018-09-03 14:23 | CT ---
CTA OF THE HEAD WITH AND WITHOUT IV CONTRAST AND 3D REFORMATTED IMAGING CTA OF THE NECK WITH IV CONTRAST AND 3D REFORMATTED IMAGING 3D VOLUME RENDERING: DATE: 08/31/2018 1:12 PM HISTORY: Left-sided weakness COMPARISON: None FINDINGS: Scattered mild atherotic plaques are present, regionally. Right: CCA:No significant stenosis. ICA:Prominent calcification at the right carotid terminus MCA:No significant stenosis. HUMPHRYE:No significant stenosis. AIRLINE MANAGER:No significant stenosis. LEFT: CCA:Mild to moderate focal stenosis at the distal left CCA ICA:Prominent calcification at the left carotid terminus. MCA:Mild atherosclerotic irregularity. HUMPHREY:Diminutive left A1 segment. This could be congenital. AIRLINE MANAGER:No significant stenosis. Vertebrobasilar System: Left Vertebral:No significant stenosis. Right Vertebral:No significant stenosis. Basilar:No significant stenosis. IMPRESSION: 1. No hemodynamically significant/severe stenosis, occlusion or aneurysmal dilation. 2. Scattered atherotic irregularity of the regional arterial system, as above. Transcribed Date/Time: 09/03/2018 2:23 PM
== END 2018-09-01 17:10 | disposition home or self-care (01) ==
LOC: ERS 13:01 → 2SE 16:59
PROVIDERS: ADMIT Internal Medicine; ATTEND Internal Medicine
DX: G40.909 Epilepsy, unspecified, not intractable, without status epilepticus (principal); G83.84 Todd's paralysis (postepileptic); M19.90 Unspecified osteoarthritis, unspecified site; F10.11 Alcohol abuse, in remission; E87.1 Hypo-osmolality and hyponatremia; Z79.82 Long term (current) use of aspirin; Z79.899 Other long term (current) drug therapy; Z79.1 Long term (current) use of non-steroidal anti-inflammatories (NSAID)
CPT/HCPCS: 70450; 70496; 70498; 70551; 71045; 80053; 80061; 80177; 82550; 82962; 85025; 85610; 85730; 93005; 93306; 94760; 96361 ×2; 96372; 96374; 99285; G0378 ×2; 36415; 36416; 84443; J1650; J1953; Q9966

== ENCOUNTER 2018-10-02 14:32 | Emergency (ER) | payer MEDICARE, MEDICAID ==
--- NOTE | 2018-10-02 16:42 | CT ---
CT Brain WO Con: 10/02/2018 4:03 PM CLINICAL HISTORY: Visual hallucinations. COMPARISON: None. FINDINGS: Hemorrhage: None. Ventricular system: Ex vacuo dilatation is present with moderate prominence of the ventricular system , more so on the left. Cerebral parenchyma: Microvascular ischemic disease, and interspersed areas of encephalomalacia. Midline shift: None of significance. Mass: No mass effect. Calvarium: Normal. Visualized Paranasal sinuses: Clear. IMPRESSION: No acute intracranial hemorrhage or mass effect Hypervascular ischemic disease and interspersed areas of encephalomalacia resulting in ex vacuo dilat ation of the ventricular system.
[2018-10-02] MEDS ORDERED: Lorazepam 2 MG/ML VIAL ONE (16:55)
[2018-10-02] MEDS ORDERED: Ketorolac Tromethamine 30 MG/ML VIAL ONE (16:55)
[2018-10-02] MEDS ORDERED: Dexamethasone 10 MG/ML VIAL ONE (16:55)
[2018-10-02] MEDS ORDERED: Metoclopramide HCl 10 MG/2 ML VIAL ONE (16:55)
[2018-10-02 17:11] LABS: #Eosinphils 0.2 thou/uL (0.0-0.7); #Lymphocytes 1.1 thou/uL (1.20-3.40); #Monocytes 0.5 thou/uL (0.11-0.59); #Neutrophils 7.6 thou/uL (1.40-6.50); %Basophils 0.4 % (0.0-1.0); %Eosinophils 1.8 % (0.0-10.0); %Lymphocytes 11.8 % (21.0-51.0); %Monocytes 5.2 % (0.0-10.0); %Neutrophils 80.8 % (42.0-75.0); Hemoglobin 15.3 g/dL (14.0-18.0); Mean Corpuscular HGB CONC 33.3 g/dL (32.0-36.0); Mean Corpuscular Hemoglobin 30.3 pg (27.0-31.0); Mean Corpuscular Volume 90.7 fL (78.0-98.0); Mean Platelet Volume 7.3 fL (7.4-10.4); Platelet Count 242 thou/uL (130-400); RBC Distribution Width 12.1 % (11.5-14.5); Red Blood Cell (RBC) Count 5.05 mill/uL (4.70-6.10); White Blood Cell (WBC) Count 9.3 thou/uL (4.8-10.8)
[2018-10-02 17:23] LABS: ALT (SGPT) 8 U/L (8-55); AST (SGOT) 14 U/L (5-34); Albumin 4.5 g/dL (3.4-4.8); Alkaline Phosphatase 98 U/L (40-150); Anion Gap 13 mmol/L (10-20); BUN (Urea Nitrogen) 14 mg/dL (8.4-25.7); Bilirubin, Total 0.8 mg/dL (0.2-1.2); CK (CPK) 84 U/L (30-200); Calc. Creatinine Clearance 0 mL/min (70-130); Calcium 9.7 mg/dL (7.8-10.44); Carbon Dioxide 26 mmol/L (23-31); Chloride 102 mmol/L (98-107); Estimated GFR-MDRD 54; Globulin 3.5 g/dL (2.4-3.5); Glucose 102 mg/dL (83-110); Potassium 3.3 mmol/L (3.5-5.1); Sodium 138 mmol/L (136-145)
== END 2018-10-02 18:30 | disposition home or self-care (01) ==
LOC: ERS 14:32
DX: H53.9 Unspecified visual disturbance (principal); M19.90 Unspecified osteoarthritis, unspecified site; Z79.82 Long term (current) use of aspirin; Z79.899 Other long term (current) drug therapy
CPT/HCPCS: 70450; 80053; 82550; 84146; 85025; 93005; 96361; 96374; 96375; J1100; J1885; J2060; J2765

== ENCOUNTER 2019-03-06 17:41 | Observation (INO) | payer MEDICARE, MEDICAID ==
--- NOTE | 2019-03-06 17:56 | CT ---
CT Brain WO Con: 03/06/2019 12:00 AM CLINICAL HISTORY: Right-sided weakness and headache. IMAGING TECHNIQUE: Multiple CT images were obtained of the brain without IV contrast. COMPARISON: CT the brain dated September 24, 2018 and MR the brain dated September 01, 2018 FINDINGS: Brain: No acute infarct or hemorrhage is evident. No midline shift. Severe chronic small vessel whi te matter ischemic change with scattered areas of encephalomalacia are stable. Ex vacuo dilatation of the lateral ventricles, particularly the left lateral ventricle, is stable. Ventricles: As above. Skull: Intact.. Visualized Paranasal sinuses: Clear.. Mastoid air cells:Clear. Extracranial soft tissues:Normal. IMPRESSION: No acute intracranial abnormality. Findings called Dr. Gregory at 5:51 PM on March 06, 2019
[2019-03-06 17:58] LABS: #Eosinphils 0.4 thou/uL (0.0-0.7); #Lymphocytes 1.2 thou/uL (1.20-3.40); #Monocytes 0.4 thou/uL (0.11-0.59); %Basophils 0.5 % (0.0-1.0); %Eosinophils 5.4 % (0.0-10.0); %Lymphocytes 17.1 % (21.0-51.0); Hemoglobin 14.6 g/dL (14.0-18.0); Mean Corpuscular HGB CONC 33.5 g/dL (32.0-36.0); Mean Corpuscular Hemoglobin 30.5 pg (27.0-31.0); Mean Corpuscular Volume 91.1 fL (78.0-98.0); Mean Platelet Volume 6.4 fL (7.4-10.4); Platelet Count 247 thou/uL (130-400); RBC Distribution Width 11.6 % (11.5-14.5); Red Blood Cell (RBC) Count 4.78 mill/uL (4.70-6.10)
[2019-03-06 18:10] LABS: PTT 26.1 SEC (22.9-36.1); Prothrombin Time 12.7 SEC (12.0-14.7)
[2019-03-06 18:13] LABS: ALT (SGPT) 15 U/L (8-55); AST (SGOT) 16 U/L (5-34); Albumin 3.9 g/dL (3.4-4.8); Alkaline Phosphatase 150 U/L (40-110); Anion Gap 12 mmol/L (10-20); BUN (Urea Nitrogen) 11 mg/dL (8.4-25.7); Bilirubin, Total 0.3 mg/dL (0.2-1.2); CK (CPK) 52 U/L (30-200); Calc. Creatinine Clearance 0 mL/min (70-130); Carbon Dioxide 26 mmol/L (23-31); Chloride 101 mmol/L (98-107); Estimated GFR-MDRD 69; Globulin 3.6 g/dL (2.4-3.5); Glucose 112 mg/dL (83-110); Potassium 3.8 mmol/L (3.5-5.1); Protein, Total 7.5 g/dL (5.8-8.1); Sodium 135 mmol/L (136-145)
--- NOTE | 2019-03-06 18:18 | CT ---
CTA of the head with IV contrast and 3-D reformatted imaging. CTA of the neck with IV contrast and 3-D reformatted imaging. INDICATION: Level 1 stroke; right-sided weakness COMPARISON: Prior CTA of the head and neck dated August 31, 2018 FINDINGS: CTA OF THE HEAD WITH CONTRAST: CTA OF THE BRAIN: Right ICA: Patent. Right MCA: Patent. Right HUMPHREY: Patent. ACOM: Not well seen Left ICA: Moderate vascular calcifications but patent Left MCA: Patent. Left HUMPHREY: Diminutive PCOMs: Patent. Vertebral arteries: Patent. Basilar Artery: Patent. mica miner: Patent. Incidentals: Please see the noncontrast CT of the brain performed earlier at 5:45 PM further details . No abnormal enhancement is demonstrated. CTA OF THE NECK WITH CONTRAST: Right CCA: Patent. Right ICA: Patent. Right Subclavian: Patent. Right Vertebral Artery: Patent. Left CCA: Mild narrowing distally is stable. Left ICA: Patent. Left Subclavian: Patent. Left Vertebral Artery: Patent. Aerodigestive tract: Clear. Parotids/Submandibular/Thyroid glands: Normal. Lymph nodes: No pathologically enlarged lymph nodes. Lung Apices: Clear. Bones: Stable postoperative change of the cervical spine. Stable spondylosis Incidentals: None. IMPRESSION: 1. No hemodynamically significant stenosis, occlusion or aneurysmal formation.
[2019-03-06 19:01] LABS: Bilirubin Negative (Negative); Blood, Urine Negative (Negative); Clarity Clear (Clear); Glucose, Urine (Dipstick) Normal (Negative); Leukocyte Negative Leu/uL (Negative); Nitrite Negative (Negative); Protein, Urine (Dipstick) Negative (Neg-Trace); Urobilinogen Normal mg/dL (Less than 2)
[2019-03-06] MEDS ORDERED: Aspirin Chewable 81 MG TAB ONE (19:32)
[2019-03-06 19:36] LABS: PTT 26.2 SEC (22.9-36.1); Prothrombin Time 12.9 SEC (12.0-14.7)
[2019-03-06 22:59] VITALS: BMI 20.7
[2019-03-06] MEDS ORDERED: Metoclopramide HCl 10 MG TAB PO PRN (23:43)
[2019-03-07] MEDS ORDERED: Acetaminophen 325 MG TAB PO PRN ×2 (00:27→02:23)
[2019-03-07] MEDS ORDERED: levETIRAcetam 500 MG TAB PO SCH (00:30)
[2019-03-07] MEDS ORDERED: Senokot S 8.6-50 MG TAB PO PRN (02:23)
[2019-03-07] MEDS ORDERED: Guaifenesin DM 100-10/5 ML UDCUP PO PRN (02:23)
[2019-03-07] MEDS ORDERED: Bisacodyl 10 MG SUPP PR PRN (02:23)
[2019-03-07] MEDS ORDERED: Lorazepam 2 MG/ML VIAL SLOW IVP PRN (02:23)
--- NOTE | 2019-03-07 03:12 | HP ---
REASON FOR ADMISSION: Right-sided focal/partial seizure with Robert paralysis post seizure. HISTORY OF PRESENTING ILLNESS: The patient gives history of having a seizure around 8 in the morning. He has right-sided focal seizures with shaking only right upper and lower extremities. He has had nearly 10 of them this year. He in fact had an EEG done on the in Dr. Bob' office. Usually after his seizure episode , he will have weakness on the right side and will not be able to move his extremities. Currently, he is moving all 4 extremities. He is not sure how long he was unable to move his right side. The patient also mentions that he has been off Dilantin from last 30 days and does not have a refill on it. He was on Keppra 500 three times daily which was increased to 1000 mg three times daily a month back. 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 History of focal seizure on the right side with aura and Robert paralysis. Left shoulder surgery, right knee surgery, appendectomy, spine surgery. CURRENT MEDICATIONS: 1. Naprosyn p.r.n. 2. Keppra 1000 mg three times daily. 3. Aspirin 81 mg daily. 4. Motrin p.r.n. 5. Reglan p.r.n. ALLERGIES: NO KNOWN DRUG ALLERGIES. PERSONAL HISTORY: Quit smoking 7 years back when he was diagnosed with seizure. Prior to which, has smoked 2 packs a day for nearly 40 years. He quit drinking alcohol and he was diagnosed with seizures 7 years back. Does not abuse drugs. He stays with his . Ambulates by himself. FAMILY HISTORY: Mother of unknown cancer at the age of 36. Father in his 60s. He does not know much about his father. CODE STATUS: Full. Power of traffic law attorney is his review. REVIEW OF SYSTEMS: CONSTITUTIONAL: Negative for weight loss or gain, ability to conduct usual activities. SKIN: Negative for rash, itching. EYES: Negative for double vision, pain. ENT/MOUTH: Negative for nose bleeding, neck stiffness, pain, tenderness. CARDIOVASCULAR: Negative for palpitations, dyspnea on exertion, orthopnea. RESPIRATORY: Negative for shortness of breath, wheezing, cough, hemoptysis, fever or night sweats. GASTROINTESTINAL: Negative for poor appetite, abdominal pain, heartburn, nausea , vomiting, constipation, or diarrhea. GENITOURINARY: Negative for urgency, frequency, dysuria, nocturia. MUSCULOSKELETAL: Negative for pain, swelling. NEUROLOGIC/PSYCHIATRIC: Negative for anxiety, depression. ALLERGY/IMMUNOLOGIC: Negative for skin rash, bleeding tendency. PHYSICAL EXAMINATION: GENERAL: The patient is a 73-year-old male who is currently not in any acute distress. VITAL SIGNS: Blood pressure on arrival was 184/116, pulse 89 per minute, respiratory rate 18 per minute, temperature of 98.1 degrees Fahrenheit, saturating 100% on room air. NECK: Supple. No elevated JVD. HEENT: Eyes; extraocular muscles intact. Pupils reacting to light. Oral cavity, mucous membranes are moist. No exudates or congestion CARDIOVASCULAR: S1 and S2 heard. Regular rhythm. RESPIRATORY: Air entry 2+ bilateral. No rales or rhonchi. ABDOMEN: Soft. Bowel sounds heard. No tenderness, rigidity, or guarding. EXTREMITIES: No peripheral edema or calf tenderness. VASCULAR: Peripheral pulses 2+ bilateral. No ischemic ulcerations or gangrene. CENTRAL NERVOUS SYSTEM: No gross focal deficits noted. The patient is alert, awake, and oriented well. PSYCHIATRIC: The patient's mood is euthymic. No hallucinations or delusions. LABORATORY DATA: EKG done shows normal sinus rhythm at 97 beats per minute. There is poor R-wave progression seen. CT angio of brain done shows no hemodynamically significant stenosis, occlusion, or aneurysm seen. CT brain shows no acute intracranial abnormality. UA shows no signs of infection. BUN 11, creatinine 1.0, serum glucose 112. Troponin I x1 negative. Albumin is 3.9. PT, INR, PTT within normal limits. H and H 14 and 43, platelet count 247, white count of 7, MCV is 91. CLINICAL IMPRESSION AND PLAN: The patient will be under observation on stroke unit for breakthrough seizure with history of right-sided focal/partial seizure and Robert paralysis. He has had a recent EEG done on the at Dr. Bob' office. He is also noncompliant with his seizure medication and has not been taking Dilantin for the last 30 days now. His Keppra was recently increased from 500 to 1000 mg three times daily. We will place him back on phenytoin and home dose of Keppra. Neurology consultation will be obtained now. He will be on aspirin and Pepcid twice daily. A urine drug screen will also be obtained. We will obtain neurology consultation with Dr. Urias. If he is cleared by Dr. Urias, the patient can be safely discharged home to follow up with Dr. Bob. Job ID: [id number] MTDD
[2019-03-07 04:08] LABS: Amphetamine Not Detected (NotDetected); Barbiturates Screen Detected (NotDetected); Benzodiazepine Screen Not Detected (NotDetected); Cocaine Metabolite Screen Not Detected (NotDetected); Medtox Control Line Valid? VALID (VALID); Medtox Reader # READER 4; Methadone Not Detected (NotDetected); Methamphetamine Not Detected (NotDetected); Opiate Screen Not Detected (NotDetected); Oxycodone Screen Not Detected (NotDetected); Phencyclidine (PCP) Not Detected (NotDetected); THC/Cannabinoid Screen Not Detected (NotDetected); Tricyclic Screen Not Detected (NotDetected)
[2019-03-07 05:13] LABS: #Basophils 0.1 thou/uL (0.0-0.2); #Eosinphils 0.6 thou/uL (0.0-0.7); #Monocytes 0.8 thou/uL (0.11-0.59); #Neutrophils 6.1 thou/uL (1.40-6.50); %Basophils 0.7 % (0.0-1.0); %Eosinophils 6.3 % (0.0-10.0); %Lymphocytes 20.7 % (21.0-51.0); %Neutrophils 64.2 % (42.0-75.0); Hemoglobin 14.2 g/dL (14.0-18.0); Mean Corpuscular HGB CONC 33.5 g/dL (32.0-36.0); Mean Corpuscular Hemoglobin 30.2 pg (27.0-31.0); Mean Corpuscular Volume 90.1 fL (78.0-98.0); Mean Platelet Volume 6.8 fL (7.4-10.4); Platelet Count 248 thou/uL (130-400); RBC Distribution Width 11.7 % (11.5-14.5); Red Blood Cell (RBC) Count 4.71 mill/uL (4.70-6.10); White Blood Cell (WBC) Count 9.4 thou/uL (4.8-10.8)
[2019-03-07 05:24] LABS: Anion Gap 13 mmol/L (10-20); BUN (Urea Nitrogen) 11 mg/dL (8.4-25.7); Calc. Creatinine Clearance 63 mL/min (70-130); Calcium 8.9 mg/dL (7.8-10.44); Carbon Dioxide 26 mmol/L (23-31); Chloride 101 mmol/L (98-107); Estimated GFR-MDRD 73; Glucose 101 mg/dL (83-110); Potassium 3.3 mmol/L (3.5-5.1); Sodium 137 mmol/L (136-145)
[2019-03-07] MEDS ORDERED: Enoxaparin Sodium 40 MG/0.4 ML SYRINGE SC SCH (09:00)
[2019-03-07] MEDS: levETIRAcetam 500 MG TAB PO SCH ×2 (09:00→14:49)
[2019-03-07] MEDS ORDERED: Famotidine 20 MG TAB PO SCH (09:00)
[2019-03-07] MEDS ORDERED: Aspirin 81 mg Enteric Coated Tablet PO SCH (09:00)
--- NOTE | 2019-03-07 12:54 | CON ---
DATE OF TELEMEDICINE CONSULTATION: 03/07/2019 CHIEF COMPLAINT: Seizures. HISTORY OF PRESENT ILLNESS: The patient was admitted in August 2018, which was when I first saw him. He came back this week, since yesterday for another seizure. He reports his was very concerned about the way he was and brought him to the hospital. The patient has had seizures for the last seven years. His first seizure was seven years ago when he was in [place]. Next seizure was in August 2018 and this admission is a third seizure. The patient has been taking Keppra 1000 mg three times daily. He has a neurologist, who completed his EEG workup recently with continuous EEG monitoring and his neurologist is at [facility]. The patient currently feels good. He reports with his seizure he feels numb and weak on the right side and this is more of a partial seizure while he is awake. He is able to talk through the episode. Episodes lasts a few minutes, but the weakness usually lasts a day or two. His current workup does not show any evidence of acute stroke and his vasculature looks normal on CT angiogram. PREVIOUS MEDICAL HISTORY: Seizures and history of CVA six years ago without any residual deficits. FAMILY HISTORY: Mother of cancer at 36. Father in his 80s from diabetes. All his siblings have diabetes. PAST SURGICAL HISTORY: He has left shoulder surgery, right knee surgery, appendectomy, and spine surgery. MEDICATIONS: At home as mentioned, he takes 1000 mg three times daily of Keppra. He also takes; 1. Aspirin. 2. Naproxen. 3. Motrin. 4. Reglan as needed. ALLERGIES: NO KNOWN DRUG ALLERGIES. REVIEW OF SYSTEMS: PULMONARY: Negative for shortness of breath or cough. GI: Negative for nausea, vomiting or diarrhea. NEUROLOGIC: Positive for seizure and weakness. DERMATOLOGIC: Negative for skin rash. HEMATOLOGIC: Negative for any bleeding diathesis. His workup so far, laboratory workup; white count 9.4, hemoglobin 14.2, hematocrit 42.4, and platelet count 248. Chemistry; sodium 137, potassium 3.3, chloride 101, bicarb 26, BUN 11, creatinine 1, and glucose 101. Liver functions are within normal limits. TSH 4.32. Urine tox screen is positive for barbiturates and his CT of the head was negative for any acute events and CT angiogram did not show any vascular stenosis. PHYSICAL EXAMINATION: VITAL SIGNS: Temperature 98.6, pulse 92, respiratory rate is 20, O2 saturations 96, and blood pressure 125/75. GENERAL APPEARANCE: Well-built, well-nourished man, who is comfortable in bed. CHEST: Clear vesicular breathing. CARDIOVASCULAR: S1 and S2 heard. No murmurs. ABDOMEN: Soft and nontender. No organomegaly is noted. NEUROLOGIC: Higher intellectual functions normal. Cranial nerves, normal extraocular movements. No facial asymmetry noted. Normal sensation of face bilaterally. Tongue midline. Pupils are 2 mm, reactive to light and motor examination bulk, normal tone, normal strength 5/5 throughout in iliopsoas, hamstrings, quadriceps, ankle dorsiflexion, plantar flexion, deltoid, biceps, triceps, wrist extension and flexion, finger extension and flexion bilaterally. Sensory normal to touch bilaterally and cerebellar normal [id number] and [id number]. IMPRESSION: The patient with partial seizures involving the right side of his body with residual Robert paralysis. He has not had a seizure in six months almost and the seizures are not regular and they are infrequent at this time. However, due to presence of Robret paralysis, they were concerned enough to come to the hospital. His current CT angiogram does not show any vascular abnormalities. I doubt this is a stroke. This is more seizure with secondary Robert paralysis. RECOMMENDATIONS: I will add carbamazepine to his medication regimen to see if it will help better with the partial seizures and he can follow up with his primary neurologist through the [facility] [place] [facility], so he can review the results of his most recent ambulatory EEG monitoring and I will see the patient as needed. Please complete his MRI to make sure he did not have a stroke. Job ID: [id number] [facility]
[2019-03-07] MEDS ORDERED: Potassium Chloride 20 MEQ TAB PO SCH (14:15)
[2019-03-07 15:41] VITALS: BP 140/87; TEMP 97.7
[2019-03-07] MEDS ORDERED: FLU VACC TS2019-20(65YR UP)/PF 180 MCG/0.5 ML SYRINGE IM ONE (21:00)
--- NOTE | 2019-03-07 22:05 | DIS ---
DATE OF ADMISSION: 03/06/2019 DATE OF DISCHARGE: 03/07/2019 DISCHARGE DISPOSITION: Home. FOLLOWUP: Follow up with primary care physician, Dr. Brady Borden, at [facility] in 1 week. Follow up with primary neurologist, Dr. Bob, at [facility]. ALLERGIES: NO KNOWN DRUG ALLERGIES. DISCHARGE MEDICATIONS: Carbamazepine extended release 200 mg b.i.d. The patient will continue all other home medications. Patient was seen on the day of discharge. Denies any new complaints. No chest pain, shortness of breath, syncope, or seizures reported. BRIEF HOSPITAL COURSE: The patient is a 73-year-old male with history of seizure disorder, presented to the emergency room after an episode of right-sided seizure along with weakness. Please refer to the history and physical for further details. The patient was admitted to the Stroke Unit with a diagnosis of breakthrough seizure. He was monitored closely. Keppra was continued. He was evaluated by Neurology, who recommended adding Tegretol extended release [address] angiogram of the head and neck was negative for hemodynamically significant stenosis, occlusion or aneurysm formation. CT scan of the brain without contrast was negative. He has been cleared by Neurology for discharge. FINAL DIAGNOSES: 1. Breakthrough seizures. 2. History of seizure disorder. 3. History of CVA without significant deficit. 4. Hypokalemia, replaced. 5. Hyponatremia, resolved. PLAN: Plan of care was discussed with the patient in detail. He stated understanding. Job ID: [id number]
== END 2019-03-07 16:38 | disposition home or self-care (01) ==
LOC: ERS 17:41 → 2SE 22:09
PROVIDERS: ADMIT Internal Medicine; ATTEND Internal Medicine
DX: G40.109 Localization-related (focal) (partial) symptomatic epilepsy and epileptic syndromes with simple partial seizures, not intractable, without status epilepticus (principal); G83.84 Todd's paralysis (postepileptic); E87.6 Hypokalemia; E87.1 Hypo-osmolality and hyponatremia; Z79.82 Long term (current) use of aspirin; Z79.899 Other long term (current) drug therapy; Z86.73 Personal history of transient ischemic attack (TIA), and cerebral infarction without residual deficits; Z87.891 Personal history of nicotine dependence
CPT/HCPCS: 70450; 70496; 70498; 80048; 80053; 80306; 81003; 82550; 82962; 84443; 84484; 85025 ×2; 85610 ×2; 85730 ×2; 93005; 96372; 97139 ×2; 99285; G0378 ×2; 36415; 36416; J1650; Q9966

== ENCOUNTER 2019-05-18 13:07 | Observation (INO) | payer MEDICARE, MEDICAID ==
[2019-05-18 13:48] LABS: #Eosinphils 0.2 thou/uL (0.0-0.7); #Lymphocytes 0.7 thou/uL (1.20-3.40); #Monocytes 0.4 thou/uL (0.11-0.59); #Neutrophils 5.4 thou/uL (1.40-6.50); %Basophils 0.6 % (0.0-1.0); %Eosinophils 2.9 % (0.0-10.0); %Lymphocytes 10.7 % (21.0-51.0); %Monocytes 5.6 % (0.0-10.0); %Neutrophils 80.2 % (42.0-75.0); Hemoglobin 14.6 g/dL (14.0-18.0); Mean Corpuscular HGB CONC 34.1 g/dL (32.0-36.0); Mean Corpuscular Hemoglobin 30.9 pg (27.0-31.0); Mean Corpuscular Volume 90.7 fL (78.0-98.0); Mean Platelet Volume 6.6 fL (7.4-10.4); Platelet Count 249 thou/uL (130-400); RBC Distribution Width 11.4 % (11.5-14.5); Red Blood Cell (RBC) Count 4.73 mill/uL (4.70-6.10); White Blood Cell (WBC) Count 6.8 thou/uL (4.8-10.8)
--- NOTE | 2019-05-18 14:02 | CT ---
Exam: Head CT without contrast HISTORY: Seizure COMPARISON: 03/06/2019 FINDINGS: Hemorrhage: No intraparenchymal hemorrhage or extra-axial hematoma. Brain parenchyma: Cortical amador-white matter differentiation is preserved. No mass effect or midline shift. Basilar cisterns are patent.Stable white matter hypodensities due to chronic small vessel ischemic change. There is a, stable nodularity involving the left lateral ventricle. Correlation made with MRI with 09/01/2018 demonstrates white matter gliosis. Ventricular system: Stable configuration with asymmetric prominence of the left lateral ventricle. St able mild prominence of the third ventricle Calvarium: Intact. Sinuses and mastoid air cells: Adequate aeration. IMPRESSION: No acute intracranial process.
[2019-05-18 14:10] LABS: ALT (SGPT) 16 U/L (8-55); AST (SGOT) 17 U/L (5-34); Alkaline Phosphatase 158 U/L (40-110); Anion Gap 13 mmol/L (10-20); BUN (Urea Nitrogen) 10 mg/dL (8.4-25.7); Bilirubin, Total 0.6 mg/dL (0.2-1.2); CK (CPK) 64 U/L (30-200); Calc. Creatinine Clearance 0 mL/min (70-130); Calcium 8.8 mg/dL (7.8-10.44); Carbon Dioxide 26 mmol/L (23-31); Chloride 98 mmol/L (98-107); Estimated GFR-MDRD 76; Globulin 3.6 g/dL (2.4-3.5); Glucose 125 mg/dL (83-110); Potassium 3.4 mmol/L (3.5-5.1); Protein, Total 7.6 g/dL (5.8-8.1); Sodium 134 mmol/L (136-145)
[2019-05-18 14:31] LABS: Bilirubin Negative (Negative); Blood, Urine Negative (Negative); Clarity Clear (Clear); Glucose, Urine (Dipstick) 100 mg/dL (Negative); Leukocyte Negative Leu/uL (Negative); Nitrite Negative (Negative); Protein, Urine (Dipstick) Negative (Neg-Trace); Urobilinogen Normal mg/dL (Less than 2)
--- NOTE | 2019-05-18 15:12 | RAD ---
XR Chest 1 View Portable History: Dyspnea Comparison: August 31, 2018 Findings: Faint bibasilar airspace opacities as well as lingular airspace opacity. No pneumothorax. C ardiac silhouette and mediastinal contours are within normal limits. Impression: Likely poor inspiratory effort and atelectatic changes both lower lobes versus less likel y multifocal pneumonia. Follow-up 2 views of the chest in full inspiration may be beneficial.
[2019-05-18] MEDS ORDERED: cefTRIAXone\\ROCEPHIN 2 GM VIAL ONE (15:35)
[2019-05-18] MEDS ORDERED: Azithromycin 500 MG VIAL ONE (15:35)
[2019-05-18 16:47] LABS: Lactic Acid 1.2 mmol/L (0.5-2.2)
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
[2019-05-18 18:32] VITALS: BMI 20.9
[2019-05-18] MEDS ORDERED: Acetaminophen 325 MG TAB PO PRN (19:58)
[2019-05-18] MEDS: levETIRAcetam 500 MG TAB PO SCH (20:45)
[2019-05-18] MEDS: Gabapentin 100 MG CAP PO SCH (20:45)
[2019-05-18] MEDS ORDERED: Atorvastatin Calcium 40 MG TAB PO SCH (21:00)
[2019-05-19 04:00] VITALS: BP 109/69; TEMP 98.6
--- NOTE | 2019-05-19 06:06 | PDOC.FM ---
- Subjective Subjective: Pt states he thinks he takes his medication as prescribed. No seizure like activity overnight. Pt states he is ready to go home. - Objective MAR Reviewed: Yes Vital Signs & Weight: Vital Signs (12 hours) Temp Pulse Resp BP Pulse Ox 05/19/19 04:00 98.6 F 74 18 109/69 97 05/19/19 00:00 98 F 83 18 122/78 97 05/18/19 20:00 99.2 F 81 16 131/76 97 Weight Weight 68.039 kg I&O: 05/17/19 05/18/19 05/19/19 06:59 06:59 06:59 Intake Total 600 Output Total 225 Balance 375 Result Diagrams: 05/18/19 13:39 05/18/19 13:39 Phys Exam - Physical Examination Constitutional: NAD HEENT: moist MMs, sclera anicteric Neck: no nodes, full ROM Respiratory: no wheezing, no rales, no rhonchi, clear to auscultation bilateral Cardiovascular: RRR, no significant murmur, no rub Gastrointestinal: soft, non-tender, no distention, positive bowel sounds Musculoskeletal: no edema, pulses present Neurological: moves all 4 limbs Psychiatric: normal affect, A&O x 3 Skin: no rash, normal turgor, cap refill <2 seconds Dx/Plan (1) Seizure Code(s): R56.9 - UNSPECIFIED CONVULSIONS Status: Acute (2) HLD (hyperlipidemia) Code(s): E78.5 - HYPERLIPIDEMIA, UNSPECIFIED Status: Chronic (3) History of CVA (cerebrovascular accident) Code(s): Z86.73 - PRSNL HX OF TIA (TIA), AND CEREB INFRC W/O RESID DEFICITS Status: Chronic (4) Atelectasis of both lungs Code(s): J98.11 - ATELECTASIS Status: Acute - Plan Plan: 73 y/o M admitted for seizure 1. Seizure d/o - known seizure d/o - resume home seizure medications - phenytoin, levetiracetam, and gabapentin - Phenytoin level low at 2.8 - Levetiracetam level 33.5 - Encouraged medication box and schedule for correct dosing and timing of medications at home. 2. Robert's Paresis - R sided hemiplegia and hemiparesis from seizure - will monitor for improvement as pt usually recovers quickly after seizures. - head CT no acute intracranial process. 3. Bibasilar atelectasis - most likely not pneumonia - will hold on antibiotics 4. Hx of ischemic cva in 2017 - Pt not on statin - will restart ASA and statin therapy 5. HLD - restarting statin code status: full code diet: Regular dvt ppx: scd's Dispo: stable, admit to obs anticipate <2 nights stay Addendum - Attending - Attending Attestation Date/Time: 05/19/19 0941 I personally evaluated the patient and discussed the management with Dr. Bangura I agree with the History, Examination, Assessment and Plan documented above with any addition or exceptions noted below. Patient alert oriented x 3 stable non focal neuro exam lungs clear no cough fever or chills. Lab noted low dilantin level will encourage medication compliance f/u with Dr Bob for further recommendations. Was previously advised further evaluation [place] for diagnostic testing of refractory seizure Disorder with Robert's paralysis following prior seizures.
[2019-05-19] MEDS ORDERED: Potassium Chloride 20 MEQ TAB PO SCH (06:15)
[2019-05-19] MEDS: Gabapentin 100 MG CAP PO SCH (08:38)
[2019-05-19] MEDS: levETIRAcetam 500 MG TAB PO SCH (08:38)
[2019-05-19] MEDS ORDERED: Aspirin 325 mg Enteric Coated Tablet PO SCH (09:00)
--- NOTE | 2019-05-20 04:30 | DIS ---
DATE OF ADMISSION: 05/18/2019 DATE OF DISCHARGE: 05/19/2019 Resident: Paulette Landers DO Admitting and discharge attending: Dr. Thomas CONSULTS: None. PROCEDURES: None. DIAGNOSES: 1. Seizure disorder. 2. Robert's paresis. 3. Bibasilar atelectasis. 4. History of ischemic cerebrovascular accident in 2017. 5. Hyperlipidemia. DISCHARGE MEDICATIONS: Aspirin 325 mg p.o. daily, Atorvastatin 40 mg p.o. nightly, gabapentin 100 mg p.o. t.i.d., Keppra 1000 mg p.o. t.i.d., phenytoin 100 mg p.o. t.i.d. HISTORY OF PRESENT ILLNESS/HOSPITAL COURSE: Mr. Leo is a 73-year-old gentleman with a history of known seizure disorder on levetiracetam, phenytoin, and gabapentin for his seizure disorder. Also, has a history of CVA, ischemic in 2017. The patient also has Robert's paresis and has paralysis and paresis on the right side of his body whenever seizures occur. The patient had three seizures on 05/18/2019 , and starting at 10 to about 11:00 am, which prompted him to come into the emergency department for evaluation. He presented with hemiparesis and hemiparalysis of the right side of his body, which improved and disappeared on 05/19/2019. On examination, much improved. The patient's neurologist is Dr. Pardeep Bob, it was recommended that he follow up outpatient with him to have further workup and recommendations for seizure therapy. The patient's phenytoin level was 2.8. Levetiracetam level 33.5. He had no seizure-like activity overnight, after I restarted his medications. He claims to take them as prescribed, but family members disagree with patient's statement of taking his medications three times a day, dosed correctly and timed correctly. It was recommended that he put his pills in a pill dispenser for three times a day and to follow that very closely. The patient understands this and states he will do that when he gets home. The patient also has a history of ischemic cerebrovascular accident, was not on aspirin or statin. We restarted aspirin 325 mg daily and atorvastatin therapy 40 mg p.o. at bedtime. The patient agreed to restarting these medications and was informed why he needed to be on them and we will fill them at [facility]. DISPOSITION: Stable upon discharge. No seizure-like activity. DISCHARGE INSTRUCTIONS: 1. Location: To home. 2. Diet: Regular diet. ACTIVITY: As tolerated. Follow up with primary care in 1 week . follow up with Dr. Bob, neurologist, in one weeks' time. Job ID: [id number] MTDD
== END 2019-05-19 12:04 | disposition home or self-care (01) ==
LOC: ERS 13:07 → 2SE 18:03
PROVIDERS: ADMIT Family Medicine; ATTEND Family Medicine
DX: G40.909 Epilepsy, unspecified, not intractable, without status epilepticus (principal); E78.5 Hyperlipidemia, unspecified; J98.11 Atelectasis; G83.84 Todd's paralysis (postepileptic); Z79.899 Other long term (current) drug therapy; Z86.73 Personal history of transient ischemic attack (TIA), and cerebral infarction without residual deficits
CPT/HCPCS: 70450; 71045; 80053; 80177; 80185; 81003; 82550; 83605; 84484; 85025; 87040; 87086; 87149 ×2; 96361; 96365; 96367; 97139; 99285; G0378 ×3; 36415; J0456; J0696

== ENCOUNTER 2019-07-02 15:16 | Emergency (ER) | payer MEDICARE, MEDICAID ==
[2019-07-02 18:14] LABS: #Eosinphils 0.3 thou/uL (0.0-0.7); #Lymphocytes 1.3 thou/uL (1.20-3.40); #Monocytes 0.7 thou/uL (0.11-0.59); #Neutrophils 6.2 thou/uL (1.40-6.50); %Basophils 0.5 % (0.0-1.0); %Eosinophils 3.9 % (0.0-10.0); %Lymphocytes 15.3 % (21.0-51.0); %Monocytes 7.6 % (0.0-10.0); %Neutrophils 72.8 % (42.0-75.0); Hemoglobin 14.8 g/dL (14.0-18.0); Mean Corpuscular HGB CONC 34.7 g/dL (32.0-36.0); Mean Corpuscular Hemoglobin 32.2 pg (27.0-31.0); Mean Corpuscular Volume 92.9 fL (78.0-98.0); Mean Platelet Volume 6.7 fL (7.4-10.4); Platelet Count 265 thou/uL (130-400); RBC Distribution Width 11.6 % (11.5-14.5); Red Blood Cell (RBC) Count 4.58 mill/uL (4.70-6.10); White Blood Cell (WBC) Count 8.6 thou/uL (4.8-10.8)
--- NOTE | 2019-07-02 18:16 | RAD ---
Portable frontal chest radiograph: 07/02/2019 COMPARISON: 05/18/2019 HISTORY: Frequent falls with increasing weakness FINDINGS: Heart and mediastinal contours are stable. No pneumothorax or pleural fluid. No focal conso lidation or alveolar edema. IMPRESSION: No acute findings.
[2019-07-02 18:46] LABS: ALT (SGPT) 12 U/L (8-55); AST (SGOT) 22 U/L (5-34); Albumin 4.3 g/dL (3.4-4.8); Alkaline Phosphatase 171 U/L (40-110); Anion Gap 13 mmol/L (10-20); BUN (Urea Nitrogen) 12 mg/dL (8.4-25.7); Bilirubin, Total 0.6 mg/dL (0.2-1.2); CK (CPK) 241 U/L (30-200); Calc. Creatinine Clearance 0 mL/min (70-130); Calcium 9.2 mg/dL (7.8-10.44); Carbon Dioxide 29 mmol/L (23-31); Chloride 99 mmol/L (98-107); Estimated GFR-MDRD 73; Globulin 3.5 g/dL (2.4-3.5); Glucose 104 mg/dL (83-110); Lipase 20 U/L (8-78); Potassium 3.7 mmol/L (3.5-5.1); Protein, Total 7.8 g/dL (5.8-8.1); Sodium 137 mmol/L (136-145)
[2019-07-02 18:58] LABS: Bilirubin Negative (Negative); Blood, Urine Negative (Negative); Clarity Clear (Clear); Glucose, Urine (Dipstick) Normal (Negative); Leukocyte Negative Leu/uL (Negative); Nitrite Negative (Negative); Protein, Urine (Dipstick) Negative (Neg-Trace); Urobilinogen Normal mg/dL (Less than 2)
--- NOTE | 2019-07-02 19:30 | CT ---
CT OF THE BRAIN WITHOUT CONTRAST: 07/02/19 COMPARISON: 05/18/19 HISTORY: Frequent falls with increasing weakness over the past week and decreased appetite. TECHNIQUE: Multiple contiguous axial images were obtained in a CT of the brain without contrast. FINDINGS: There are scattered hypodensities in the subcortical and periventricular white matter, likely seconda ry to small vessel ischemic disease. No large confluent infarction is seen. There is no evidence of h ydrocephalus, intracranial hemorrhage or extra-axial fluid collections. The calvarium and overlying soft tissues are unremarkable. The visualized paranasal sinuses and mast oid air cells are well aerated. IMPRESSION: No evidence of acute intracranial abnormality. POS: C
--- NOTE | 2019-07-07 01:17 | EKG ---
Test Reason : Blood Pressure : / mmHG Vent. Rate : 083 BPM Atrial Rate : 083 BPM P-R Int : 150 ms QRS Dur : 106 ms QT Int : 390 ms P-R-T Axes : 103 -09 005 degrees QTc Int : 458 ms Normal sinus rhythm Incomplete right bundle branch block Borderline ECG Confirmed by KATEY BLUNT DO ([id number]), avid editor TRISTA MORRIS ([id number]) on 07/07/2019 1:17:31 AM Referred By: Confirmed By:KATEY BLUNT DO
== END 2019-07-02 22:10 | disposition home or self-care (01) ==
LOC: ERS 15:16
DX: R53.1 Weakness (principal); M19.90 Unspecified osteoarthritis, unspecified site; E78.00 Pure hypercholesterolemia, unspecified; Z79.899 Other long term (current) drug therapy; Z79.82 Long term (current) use of aspirin; W06.XXXA Fall from bed, initial encounter
CPT/HCPCS: 36415; 70450; 71045; 80053; 81003; 82550; 83690; 84443; 84484; 85025; 93005

== ENCOUNTER 2019-07-31 12:28 | Emergency (ER) | payer MEDICARE, MEDICAID ==
[2019-07-31 13:10] LABS: #Eosinphils 0.2 thou/uL (0.0-0.7); #Lymphocytes 0.9 thou/uL (1.20-3.40); #Monocytes 0.4 thou/uL (0.11-0.59); #Neutrophils 5.5 thou/uL (1.40-6.50); %Basophils 0.4 % (0.0-1.0); %Eosinophils 3.5 % (0.0-10.0); %Lymphocytes 12.6 % (21.0-51.0); %Monocytes 5.7 % (0.0-10.0); %Neutrophils 77.8 % (42.0-75.0); Hemoglobin 14.5 g/dL (14.0-18.0); Mean Corpuscular HGB CONC 33.7 g/dL (32.0-36.0); Mean Corpuscular Hemoglobin 30.6 pg (27.0-31.0); Mean Corpuscular Volume 90.7 fL (78.0-98.0); Mean Platelet Volume 7.1 fL (7.4-10.4); Platelet Count 239 thou/uL (130-400); RBC Distribution Width 11.8 % (11.5-14.5); Red Blood Cell (RBC) Count 4.73 mill/uL (4.70-6.10); White Blood Cell (WBC) Count 7.1 thou/uL (4.8-10.8)
--- NOTE | 2019-07-31 13:12 | CT ---
CT head noncontrast HISTORY: Altered mental status. Right-sided weakness. COMPARISON: 07/02/2019. FINDINGS: There is no evidence of acute intracranial hemorrhage or infarct. Heterotopic amador matter a long the lateral aspect of the left lateral ventricle is again demonstrated. Prominent chronic ischemic small vessel disease throughout the periventricular white matter of each cerebral hemisphere . Mild distention of the ventricular system is unchanged. Septum pellucidum is midline. There is no mass effect or shift of midline structures. Visualized paranasal sinuses remain well aera chai. IMPRESSION : Chronic-type findings are stable. No acute intracranial abnormalities are demonstrated. Findings were called to Dr. Topete in the emergency department at 1305 hours. Code CR.
[2019-07-31 13:28] LABS: ALT (SGPT) 14 U/L (8-55); AST (SGOT) 24 U/L (5-34); Albumin 4.1 g/dL (3.4-4.8); Alkaline Phosphatase 184 U/L (40-110); Anion Gap 15 mmol/L (10-20); BUN (Urea Nitrogen) 13 mg/dL (8.4-25.7); Bilirubin, Total 0.6 mg/dL (0.2-1.2); Calc. Creatinine Clearance 0 mL/min (70-130); Calcium 9.2 mg/dL (7.8-10.44); Carbon Dioxide 25 mmol/L (23-31); Chloride 97 mmol/L (98-107); Estimated GFR-MDRD 89; Globulin 3.6 g/dL (2.4-3.5); Glucose 97 mg/dL (83-110); Potassium 3.9 mmol/L (3.5-5.1); Protein, Total 7.7 g/dL (5.8-8.1); Sodium 133 mmol/L (136-145)
--- NOTE | 2019-07-31 13:28 | CT ---
CT arteriogram neck with IV contrast and 3-D imaging CT angiogram head with IV contrast and 3-D imaging HISTORY: Right-sided weakness. CVA. FINDINGS: There is good contrast opacification of the aortic arch with normal branching of the great vessels. Good flow into each carotid and vertebral system. [place] is intact. Good flow into each cerebral and cerebellar system. Anterior cerebral sys tem is right HU[place]HREY dominant. No focal aneurysm or thrombus. There is very mild calcification within the intracranial and extracranial carotid arteries without significant stenosis evident. No enhancing brain lesions. Calcified lymph node just to the right of the upper esophagus is stable. There are postoperative wadsworth ges of the cervical spine apparent. IMPRESSION : No acute vascular abnormalities are demonstrated. Mild atherosclerosis. Chronic-type findings are stable. Findings were called to Dr. Topete in the emergency department at 1319 hours. Code CR.
[2019-07-31 13:54] LABS: Carbamazepine-Tegretol Less than 1.9 ug/mL (4.0-12.0)
[2019-07-31] MEDS ORDERED: Iopamidol 370 76% 100 ML VIAL ONE (13:56)
[2019-07-31 13:59] LABS: PTT 27.2 SEC (22.9-36.1); Prothrombin Time 13.2 SEC (12.0-14.7)
--- NOTE | 2019-08-01 11:03 | EKG ---
Test Reason : Blood Pressure : / mmHG Vent. Rate : 086 BPM Atrial Rate : 086 BPM P-R Int : 162 ms QRS Dur : 130 ms QT Int : 402 ms P-R-T Axes : 043 -11 -01 degrees QTc Int : 481 ms Normal sinus rhythm Right bundle branch block Abnormal ECG Confirmed by CHUCKY WHEAT MD ([id number]), publication editor TRISTA MORRIS ([id number]) on 08/01/2019 11:03:08 AM Referred By: Confirmed By:CHUCKY WHEAT MD
--- NOTE | 2019-08-06 15:24 | CT ---
CT arteriogram neck with IV contrast and 3-D imaging CT angiogram head with IV contrast and 3-D imaging HISTORY: Right-sided weakness. CVA. FINDINGS: There is good contrast opacification of the aortic arch with normal branching of the great vessels. Good flow into each carotid and vertebral system. [place] is intact. Good flow into each cerebral and cerebellar system. Anterior cerebral sys tem is right HUMPHREY dominant. No focal aneurysm or thrombus. There is very mild calcification within the intracranial and extracranial carotid arteries without significant stenosis evident. No enhancing brain lesions. Calcified lymph node just to the right of the upper esophagus is stable. There are postoperative wadsworth ges of the cervical spine apparent. IMPRESSION : No acute vascular abnormalities are demonstrated. Mild atherosclerosis. Chronic-type findings are stable. Findings were called to Dr. Topete in the emergency department at 1319 hours. Code CR. Transcribed Date/Time: 08/06/2019 3:24 PM
== END 2019-07-31 16:44 | disposition home or self-care (01) ==
LOC: ERS 12:28
DX: G40.209 Localization-related (focal) (partial) symptomatic epilepsy and epileptic syndromes with complex partial seizures, not intractable, without status epilepticus (principal); E78.00 Pure hypercholesterolemia, unspecified; M19.90 Unspecified osteoarthritis, unspecified site; Z79.899 Other long term (current) drug therapy; Z79.82 Long term (current) use of aspirin
CPT/HCPCS: 36416; 70450; 70496; 70498; 80053; 80156; 80185; 85025; 85610; 85730; 93005; 94760; Q9967